=== PATIENT | female | born 1960 | race Caucasian/White ===

== ENCOUNTER 2017-02-04 19:41 | Emergency (ER) | payer MEDICAID ==
[~2017-02-04] VITALS: Ht 160 cm; Wt 75.0 kg
[2017-02-04 19:43] VITALS: BP 110/78
[2017-02-04] MEDS ORDERED: METO25TA35 PO (21:03)
[2017-02-04] MEDS ORDERED: NITR100C56 PO (21:03)
[2017-02-04] MEDS ORDERED: DOCU100C33 PO (21:03)
[2017-02-04] MEDS ORDERED: FLUT1DIS3 INH (21:03)
[2017-02-04] MEDS ORDERED: MOME13HF2 INH (21:03)
[2017-02-04] MEDS ORDERED: ESTR1TAB15 PO (21:03)
[2017-02-04] MEDS ORDERED: VENL225T PO (21:03)
[2017-02-04] MEDS ORDERED: GABA300C10 PO (21:03)
[2017-02-04] MEDS ORDERED: ALBU0.63 NEB (21:03)
[2017-02-04] MEDS ORDERED: ASPI-496 PO (21:03)
[2017-02-04] MEDS ORDERED: NITR0.4T SL (21:03)
[2017-02-04] MEDS ORDERED: LISI5TAB7 PO (21:03)
[2017-02-04] MEDS ORDERED: HYDR200T PO (21:03)
[2017-02-04] MEDS ORDERED: RANI150C PO (21:03)
[2017-02-04] MEDS ORDERED: ESOM20CA PO (21:03)
[2017-02-04] MEDS ORDERED: MORP-52 PO (21:03)
[2017-02-04] MEDS ORDERED: FLUC150T2 PO (21:03)
[2017-02-04] MEDS ORDERED: BUPR150T73 PO (21:03)
[2017-02-04] MEDS ORDERED: HYDR-3307 PO (21:03)
[2017-02-04] MEDS ORDERED: PRAV80TA2 PO (21:03)
[2017-02-04] MEDS ORDERED: OMEP-110 PO (21:03)
[2017-02-04] MEDS ORDERED: HYDROcodone/APAP 5/325 TABLET PO ONE (21:30)
[2017-02-04] MEDS ORDERED: HYDROcodone/APAP 5/325 TABLET ONE (21:31)
== END 2017-02-04 21:39 | disposition home or self-care (01) ==
LOC: ED 21:00
DX: S76.011A Strain of muscle, fascia and tendon of right hip, initial encounter (principal); N61.0 Mastitis without abscess; I10 Essential (primary) hypertension; X58.XXXA Exposure to other specified factors, initial encounter; Y93.89 Activity, other specified; Y92.89 Other specified places as the place of occurrence of the external cause; Y99.8 Other external cause status
CPT/HCPCS: 99284

== ENCOUNTER 2017-05-20 05:35 | Inpatient (IN) | payer MEDICAID ==
[2017-05-18 13:57] LABS: BASOPHILS # (AUTO) 0.05 x10^3/uL (0-0.1); BASOPHILS % (AUTO) 1 % (0-1); EOSINOPHILS # (AUTO) 0.17 x10^3/uL (0-0.4); EOSINOPHILS % (AUTO) 2 % (1-7); HCT (SEDRATE) 43.5 % (34.6-47.8); LYMPHOCYTES # (AUTO) 1.91 x10^3/uL (1-3.4); LYMPHOCYTES % (AUTO) 26 % (22-44); MD NO; MEAN CORPUSCULAR HEMOGLOBIN 30.9 pg (27.0-34.8); MEAN CORPUSCULAR HGB CONC 33.3 g/dL (32.4-35.8); MEAN CORPUSCULAR VOLUME 92.9 fL (80-100); MEAN PLATELET VOLUME 8.1 fL (7.4-10.4); MONOCYTES # (AUTO) 0.62 x10^3/uL (0.2-0.8); MONOCYTES % (AUTO) 9 % (2-9); NEUTROPHILS # (AUTO) 4.52 x10^3/uL (1.8-6.8); NEUTROPHILS % (AUTO) 62 % (42-75); PLATELET COUNT 318 x10^3/uL (130-400); RED BLOOD COUNT 4.69 x10^6/uL (3.82-5.3); RED CELL DISTRIBUTION WIDTH 14.2 % (9.6-15.2)
[2017-05-18 14:03] LABS: MICROSCOPIC NOT IND
[2017-05-18 14:10] LABS: ALBUMIN 3.5 g/dL (3.4-5.0); ANION GAP 7 mmol/L (5-15); CHLORIDE 107 mmol/L (98-107)
[2017-05-18 14:13] LABS: ALANINE AMINOTRANSFERASE 37 U/L (12-78); ALKALINE PHOSPHATASE 104 U/L (45-117); BILIRUBIN,TOTAL 0.4 mg/dL (0.2-1.0); CREATININE 0.93 mg/dL (0.55-1.02); TOTAL PROTEIN 7.8 g/dL (6.4-8.2)
[2017-05-18 14:43] LABS: INTERNATIONAL NORMALIZED RATIO 0.96 (0.93-1.1); PROTHROMBIN TIME 9.9 Seconds (9.6-11.5)
[~2017-05-20] VITALS: Ht 160 cm; Wt 86.1 kg
[~2017-05-20 05:35] MED LIST: ACET325T26 PO; ALBU0.63 NEB; ASPI-496 PO; BACL20TA PO; BUDE10.2 INH; BUPR150T73 PO; CYCL-259 PO; DESO59LO TD; DIAZ10TA4 PO; DOCU100C33 PO; ESOM20CA PO; ESTR1TAB15 PO; FAMO20TA7 PO; FENT1PAT76 TP; FLUC100T4 PO; FLUC150T2 PO; FLUT1DIS3 INH; GABA300C10 PO; HYDR-3241 PO; HYDR-3307 PO; HYDR200T72 PO; LISI5TAB7 PO; MECL25TA4 PO; METO25TA35 PO; MOME13HF2 INH; MORP-52 PO; MUPI15CR9 TD; NALO0.4D2 INJ; NAPR-685 PO; NICO-487 TD; NITR0.4T SL; NITR100C56 PO; OMEP-110 PO; PANT40TA5 PO; PRAV80TA2 PO; RANI150C PO; RIZA10TA20 PO; VENL225T PO; [UNRECOGNIZED DRUG - CODE] EACH EAR
[2017-05-20] MEDS ORDERED: LACTATED RINGERS 1,000 ML IV SCH (06:03)
[2017-05-20] MEDS ORDERED: BACITRACIN 50,000 UNIT ONE (07:13)
[2017-05-20] MEDS ORDERED: BUPIVACAINE/PF 0.5% ONE (07:13)
[2017-05-20] MEDS ORDERED: VANCOMYCIN 1,000 MG ONE (07:13)
[2017-05-20] MEDS ORDERED: THROMBIN 20,000 UNIT VIAL TP ONE (07:13)
[2017-05-20] MEDS ORDERED: EPINEPHRINE 1 MG/ML, 1ML ONE (07:13)
[2017-05-20] MEDS ORDERED: TRANEXAMIC ACID 100 MG/ML, 10ML ONE (07:13)
[2017-05-20] MEDS ORDERED: MIDAZOLAM 1 MG/ML, 2ML ONE ×2 (07:28→09:52)
[2017-05-20] MEDS ORDERED: ACETAMINOPHEN 500 MG TABLET PO ONE (07:30)
[2017-05-20] MEDS ORDERED: GABAPENTIN 300 MG CAPSULE PO ONE (07:30)
[2017-05-20] MEDS ORDERED: OxyconTIN ER 10 MG TAB.ER ONE ×2 (07:32→07:52)
[2017-05-20] MEDS ORDERED: FENTANYL PF 250 MCG/5ML ONE (07:34)
[2017-05-20] MEDS ORDERED: ONDANSETRON 2MG/ML, 2ML ONE (07:38)
[2017-05-20] MEDS ORDERED: DEXAMETHASONE 4 MG/ML, 5ML ONE (07:38)
[2017-05-20] MEDS ORDERED: ROCURONIUM 10 MG/ML,10ML ONE (07:38)
[2017-05-20] MEDS ORDERED: CEFAZOLIN 1,000 MG ONE (07:38)
[2017-05-20] MEDS ORDERED: OXYcodone IR 5MG TABLET PO ONE ×2 (08:00)
[2017-05-20] MEDS ORDERED: HYDROmorphone 2 MG/ML, 1ML ONE (08:34)
[2017-05-20] MEDS ORDERED: LABETALOL 5MG/ML, 20ML IV PRN (09:00)
[2017-05-20] MEDS ORDERED: ALBUTEROL SULFATE 2.5 MG/3 ML NPPB PRN ×2 (09:00→12:30)
[2017-05-20] MEDS ORDERED: LORazepam 2 MG/ML, 1ML IVPush PRN (09:00)
[2017-05-20] MEDS ORDERED: MEPERIDINE/PF 25MG/0.5ML IVPush PRN (09:00)
[2017-05-20] MEDS ORDERED: ONDANSETRON 2MG/ML, 2ML IVPush PRN ×2 (09:00→12:30)
[2017-05-20] MEDS ORDERED: HYDROmorphone 2 MG/ML, 1ML IV PRN (09:00)
[2017-05-20] MEDS ORDERED: OXYcodone 5 MG/5 ML ORAL.SOL UDC PO PRN (09:00)
[2017-05-20] MEDS ORDERED: FENTANYL PF 100 MCG/2ML ONE ×3 (09:48→10:06)
[2017-05-20] MEDS ORDERED: OXYcodone 5 MG/5 ML ORAL.SOL UDC ONE (10:07)
[2017-05-20] MEDS: FENTANYL PF 100 MCG/2ML IV PRN ×2 (10:15→10:34)
[2017-05-20] MEDS ORDERED: MEPERIDINE/PF 50 MG/ML ONE (10:45)
[2017-05-20] MEDS ORDERED: BISACODYL 10 MG SUPP PR PRN (12:30)
[2017-05-20] MEDS: LABETALOL 5MG/ML, 20ML IVPush SCH ×2 (12:30→20:30)
[2017-05-20] MEDS ORDERED: DIPHENHYDRAMINE 25 MG CAPSULE PO PRN (12:30)
[2017-05-20] MEDS ORDERED: LORazepam 1MG TABLET PO PRN (12:30)
[2017-05-20] MEDS ORDERED: SENNA/DOCUSATE TABLET PO PRN (12:30)
[2017-05-20] MEDS ORDERED: ONDANSETRON ODT 4 MG PO PRN (12:30)
[2017-05-20] MEDS ORDERED: MAGNESIUM HYDROXIDE 8%, 30ML UDC PO PRN (12:30)
[2017-05-20] MEDS ORDERED: PROMETHAZINE 25 MG SUPP PR PRN (12:30)
[2017-05-20] MEDS ORDERED: ALUMINUM/MAG/SIMETHICONE 30 ML UDC PO PRN (12:30)
[2017-05-20] MEDS ORDERED: SCOPOLAMINE PATCH, 1.5MG PATCH.TD72 TD SCH (12:30)
[2017-05-20] MEDS ORDERED: PROMETHAZINE 25 MG/ML, 1ML IM PRN (12:30)
[2017-05-20] MEDS ORDERED: ZOLPIDEM 5MG TABLET PO PRN (12:30)
[2017-05-20] MEDS ORDERED: morphine SULFATE 10 MG/ML, 1ML IV PRN (12:30)
[2017-05-20] MEDS ORDERED: ACETAMINOPHEN 500 MG TABLET PO PRN (12:30)
[2017-05-20] MEDS ORDERED: LORazepam 2 MG/ML, 1ML IV PRN (12:30)
[2017-05-20] MEDS: D5%-0.45NACL+KCL 20MEQ 1,000 ML IV SCH ×2 (12:53→22:30)
[2017-05-20] MEDS: NICOTINE 21 MG/24 HR PATCH.TD24 TD SCH (12:57)
[2017-05-20] MEDS ORDERED: TRANEXAMIC ACID 1,500 MG in SODIUM CHLORIDE 0.9% 100 ML IVPB ONE (13:00)
[2017-05-20] MEDS ORDERED: MECLIZINE CHEWABLE 25 MG TAB PO PRN (13:00)
[2017-05-20] MEDS ORDERED: NALOXONE 0.4 MG/ML, 1ML IVPush PRN (13:00)
[2017-05-20] MEDS ORDERED: NITROGLYCERIN 0.4 MG BOTTLE (25 TABS) SL PRN (13:00)
[2017-05-20 13:16] VITALS: BP 103/62
[2017-05-20] MEDS ORDERED: NAPROXEN MC SCH (13:30)
[2017-05-20] MEDS: OXYcodone IR 5MG TABLET PO PRN ×4 (14:20→23:44)
[2017-05-20] MEDS ORDERED: CEFAZOLIN PMX 2GM/100ML 100 ML IVPB SCH (15:30)
[2017-05-20] MEDS ORDERED: NAPROXEN 500 MG TABLET PO SCH (16:00)
[2017-05-20] MEDS ORDERED: OxyconTIN ER 10 MG TAB.ER PO ONE (16:00)
[2017-05-20] MEDS: METOPROLOL TARTRATE 25 MG TABLET PO SCH (17:49)
[2017-05-20] MEDS: DIAZEPAM 5 MG TABLET PO PRN ×2 (18:06→22:14)
[2017-05-20 18:20] VITALS: BP 138/83
[2017-05-20] MEDS: KETOROLAC 30 MG/1 ML IV PRN (20:10)
[2017-05-20] MEDS: ESTRADIOL 2 MG TABLET PO SCH (20:25)
[2017-05-20] MEDS: DOCUSATE 100 MG CAPSULE PO SCH (20:25)
[2017-05-20] MEDS: SODIUM CHLORIDE FLUSH 10ML SYR IVF SCH (20:25)
[2017-05-20] MEDS: FAMOTIDINE 20 MG TABLET PO SCH (20:25)
[2017-05-20] MEDS: NAPROXEN 500 MG TABLET PO SCH (20:26)
[2017-05-20] MEDS ORDERED: PRAVASTATIN 40 MG TABLET PO SCH (21:00)
[2017-05-20] MEDS ORDERED: CEFAZOLIN PMX 2GM/50ML 50 ML IVPB SCH (23:30)
[2017-05-21 00:31] VITALS: BP 137/73
[2017-05-21] MEDS: DIAZEPAM 5 MG TABLET PO PRN ×3 (02:38→10:59)
[2017-05-21] MEDS: KETOROLAC 30 MG/1 ML IV PRN ×2 (02:38→08:43)
[2017-05-21] MEDS: OXYcodone IR 5MG TABLET PO PRN ×5 (02:38→12:21)
[2017-05-21 04:29] VITALS: BP 121/73
[2017-05-21] MEDS: LABETALOL 5MG/ML, 20ML IVPush SCH ×2 (04:30→09:49)
[2017-05-21] MEDS: METOPROLOL TARTRATE 25 MG TABLET PO SCH (05:52)
[2017-05-21] MEDS ORDERED: RIVAROXABAN 10 MG TABLET PO SCH (06:00)
[2017-05-21] MEDS ORDERED: DEXAMETHASONE 6 MG in SODIUM CHLORIDE 0.9% 50 ML IV PRN (06:00)
[2017-05-21 06:26] VITALS: BP 111/71
[2017-05-21] MEDS: D5%-0.45NACL+KCL 20MEQ 1,000 ML IV SCH (06:56)
[2017-05-21] MEDS: NAPROXEN 500 MG TABLET PO SCH (07:10)
[2017-05-21] MEDS ORDERED: PANTOPROZOLE 40MG TABLET PO SCH (07:30)
[2017-05-21] MEDS: ESTRADIOL 2 MG TABLET PO SCH (08:27)
[2017-05-21] MEDS: FAMOTIDINE 20 MG TABLET PO SCH (08:28)
[2017-05-21] MEDS: DOCUSATE 100 MG CAPSULE PO SCH (08:28)
[2017-05-21] MEDS: SODIUM CHLORIDE FLUSH 10ML SYR IVF SCH (08:28)
[2017-05-21] MEDS ORDERED: BUPROPION SR 150 MG TABLET PO SCH (09:00)
[2017-05-21] MEDS ORDERED: FLUCONAZOLE 100 MG TABLET PO SCH (09:00)
[2017-05-21] MEDS ORDERED: FLUTICASONE/VILANTEROL 200-25MCG/INH INH SCH (09:00)
[2017-05-21] MEDS ORDERED: MULTIVITAMINS/MINERALS TABLET PO SCH (09:00)
[2017-05-21] MEDS ORDERED: GABAPENTIN 300 MG CAPSULE PO SCH (09:00)
[2017-05-21] MEDS ORDERED: LISINOPRIL 5 MG TABLET PO SCH (09:00)
[2017-05-21] MEDS ORDERED: VENLAFAXINE 75 MG CAP ER PO SCH (09:00)
[2017-05-21] MEDS ORDERED: DEXAMETHASONE 4 MG/ML, 1ML IVPush SCH (11:00)
[2017-05-21] MEDS ORDERED: OXYC5TAB3 PO (11:41)
[2017-05-21] MEDS ORDERED: RIVA10TA PO (11:42)
[2017-05-21] MEDS ORDERED: DIAZ5TAB4 PO (11:42)
[2017-05-21] MEDS ORDERED: CEPH-368 PO (11:43)
[2017-05-21] MEDS: NICOTINE 21 MG/24 HR PATCH.TD24 TD SCH (12:24)
[2017-05-21 13:53] VITALS: BP 96/62
[2017-05-22] MEDS ORDERED: FENTANYL REMOVE PATCH NOTE XX SCH (12:30)
[2017-05-22] MEDS ORDERED: FENTANYL 25 MCG PATCH TD SCH (12:30)
== END 2017-05-21 14:00 | disposition home health service (06) | DRG 470 ==
LOC: ORIP 05:35 → 4NOR 11:28
PROVIDERS: ADMIT Orthopaedic Surgery Orthopaedic Surgery of the Spine; ATTEND Orthopaedic Surgery Orthopaedic Surgery of the Spine
PROC: 0SR904A Replacement of Right Hip Joint with Ceramic on Polyethylene Synthetic Substitute, Uncemented, Open Approach (ICD-10-PCS; principal; 2017-05-20 07:30)
DX: M16.11 Unilateral primary osteoarthritis, right hip (principal)
CPT/HCPCS: 36415; 71046; 80053; 81003; 85014; 85018; 85025; 85610; 85651; 85730; 86850; 86900; 93005; J0171; J0690; J1100; J1170; J1885; J2175; J2250; J2405; J3010; J3370; J3490; J3480

== ENCOUNTER → 2017-11-10 | Outpatient (CLI) | payer MEDICAID ==
[~2017-11-10] MED LIST changes: +CEPH-368 PO; +DIAZ5TAB4 PO; +OXYC5TAB3 PO; +RIVA10TA PO
[2017-11-10 10:51] LABS: BASOPHILS # (AUTO) 0.06 x10^3/uL (0-0.1); BASOPHILS % (AUTO) 1 % (0-1); EOSINOPHILS # (AUTO) 0.25 x10^3/uL (0-0.4); EOSINOPHILS % (AUTO) 3 % (1-7); LYMPHOCYTES # (AUTO) 2.67 x10^3/uL (1-3.4); LYMPHOCYTES % (AUTO) 31 % (22-44); MD NO; MEAN CORPUSCULAR HEMOGLOBIN 31.2 pg (27.0-34.8); MEAN CORPUSCULAR HGB CONC 33.7 g/dL (32.4-35.8); MEAN CORPUSCULAR VOLUME 92.8 fL (80-100); MEAN PLATELET VOLUME 8.6 fL (7.4-10.4); MONOCYTES # (AUTO) 0.74 x10^3/uL (0.2-0.8); MONOCYTES % (AUTO) 9 % (2-9); NEUTROPHILS # (AUTO) 4.91 x10^3/uL (1.8-6.8); NEUTROPHILS % (AUTO) 57 % (42-75); PLATELET COUNT 289 x10^3/uL (130-400); RED BLOOD COUNT 4.95 x10^6/uL (3.82-5.3); RED CELL DISTRIBUTION WIDTH 15.4 % (9.6-15.2)
[2017-11-10 10:52] LABS: HCT (SEDRATE) 45.9 % (34.6-47.8)
[2017-11-10 11:03] LABS: ALANINE AMINOTRANSFERASE 26 U/L (12-78); ANION GAP 3 mmol/L (5-15); CALCIUM 9.4 mg/dL (8.5-10.1); CHLORIDE 106 mmol/L (98-107); CREATININE 0.97 mg/dL (0.55-1.02)
[2017-11-10 11:05] LABS: ALKALINE PHOSPHATASE 116 U/L (45-117); BILIRUBIN,TOTAL 0.5 mg/dL (0.2-1.0); TOTAL PROTEIN 8.2 g/dL (6.4-8.2)
[2017-11-10 11:17] LABS: CULTURE INDICATED? NO; MICROSCOPIC NOT IND
[2017-11-10 11:23] LABS: INTERNATIONAL NORMALIZED RATIO 0.91 (0.93-1.1); PROTHROMBIN TIME 9.4 Seconds (9.6-11.5)
== END | disposition home or self-care (01) ==
LOC: STAR 09:38
PROVIDERS: ATTEND Orthopaedic Surgery Orthopaedic Surgery of the Spine
DX: Z01.818 Encounter for other preprocedural examination (principal); M50.20 Other cervical disc displacement, unspecified cervical region; M48.02 Spinal stenosis, cervical region; M54.12 Radiculopathy, cervical region
CPT/HCPCS: 36415; 71046; 80053; 81003; 85025; 85610; 85651; 85730; 93005

== ENCOUNTER 2017-11-17 05:56 | Inpatient (IN) | payer MEDICAID ==
[~2017-11-17] VITALS: Ht 160 cm; Wt 106.0 kg
[2017-11-17] MEDS ORDERED: BUPIVACAINE/PF-EPI 0.5% 1:200K ONE (06:33)
[2017-11-17] MEDS ORDERED: TRANEXAMIC ACID 100 MG/ML, 10ML ONE (06:33)
[2017-11-17] MEDS ORDERED: THROMBIN 5,000 UNIT VIAL TP ONE (06:34)
[2017-11-17] MEDS ORDERED: BACITRACIN 50,000 UNIT ONE (06:34)
[2017-11-17] MEDS ORDERED: LACTATED RINGERS 1,000 ML IV SCH (06:41)
[2017-11-17] MEDS ORDERED: THROMBIN 20,000 UNIT VIAL TP ONE (06:46)
[2017-11-17] MEDS ORDERED: ALBU8.5H8 INH (07:00)
[2017-11-17] MEDS ORDERED: MIDAZOLAM 1 MG/ML, 2ML ONE (07:18)
[2017-11-17] MEDS ORDERED: FENTANYL PF 100 MCG/2ML ONE (07:18)
[2017-11-17] MEDS ORDERED: PROPOFOL 10 MG/ML, 20ML ONE (07:19)
[2017-11-17] MEDS ORDERED: LIDOCAINE-MPF 2% ,5ML ONE (07:21)
[2017-11-17] MEDS ORDERED: EPHEDRINE 50 MG/ML, 1ML ONE (07:22)
[2017-11-17] MEDS ORDERED: PHENYLEPHRINE 10 MG/ML ONE (07:22)
[2017-11-17] MEDS ORDERED: CEFAZOLIN 1,000 MG ONE ×2 (07:22)
[2017-11-17] MEDS ORDERED: DEXAMETHASONE 4 MG/ML, 1ML ONE ×2 (07:22)
[2017-11-17] MEDS ORDERED: SODIUM CHLORIDE 0.9% PF 10ML ONE (07:23)
[2017-11-17] MEDS ORDERED: SUCCINYLCHOLINE 20 MG/ML, 10ML ONE (07:26)
[2017-11-17] MEDS ORDERED: ROCURONIUM 10MG/ML,5ML ONE (07:26)
[2017-11-17] MEDS ORDERED: FENTANYL PF 100 MCG/2ML IV PRN (07:30)
[2017-11-17] MEDS ORDERED: ONDANSETRON ODT 8 MG PO ONE (07:30)
[2017-11-17] MEDS ORDERED: LORazepam 2 MG/ML, 1ML IVPush PRN (07:30)
[2017-11-17] MEDS ORDERED: MORPHINE SULFATE 4 MG/ML, 1ML IVPush PRN (07:30)
[2017-11-17] MEDS ORDERED: hydrALAzine 20 MG/ML, 1ML IV PRN (07:30)
[2017-11-17] MEDS ORDERED: METOPROLOL 1 MG/ML, 5ML IV PRN (07:30)
[2017-11-17] MEDS ORDERED: PROCHLORPERAZINE 5 MG/ML, 2ML IV PRN (07:30)
[2017-11-17] MEDS ORDERED: MEPERIDINE/PF 25MG/0.5ML IVPush PRN (07:30)
[2017-11-17] MEDS ORDERED: MIDAZOLAM 1 MG/ML, 2ML IV PRN (07:30)
[2017-11-17] MEDS ORDERED: OXYcodone 5 MG/5 ML ORAL.SOL UDC PO PRN (07:30)
[2017-11-17] MEDS ORDERED: ALBUTEROL SULFATE 2.5 MG/3 ML NPPB PRN ×2 (07:30→13:00)
[2017-11-17] MEDS ORDERED: DIPHENHYDRAMINE 50 MG/ML, 1ML IVPush PRN ×2 (07:30→12:30)
[2017-11-17] MEDS ORDERED: ACETAMINOPHEN 500 MG TABLET PO ONE (07:30)
[2017-11-17] MEDS ORDERED: LABETALOL 5MG/ML, 20ML IV PRN ×2 (07:30→12:30)
[2017-11-17] MEDS ORDERED: DIAZEPAM 5 MG/ML, 2ML IVPush PRN (07:30)
[2017-11-17] MEDS ORDERED: EPHEDRINE 50 MG/ML, 1ML IVPush PRN (07:30)
[2017-11-17] MEDS ORDERED: GABAPENTIN 300 MG CAPSULE PO ONE (07:30)
[2017-11-17] MEDS ORDERED: PROPOFOL 50 ML ONE (07:35)
[2017-11-17] MEDS ORDERED: VANCOMYCIN 500 MG ONE (09:04)
[2017-11-17] MEDS ORDERED: OXYcodone 5 MG/5 ML ORAL.SOL UDC ONE (09:59)
[2017-11-17] MEDS ORDERED: HYDROmorphone 2 MG/ML, 1ML ONE (09:59)
[2017-11-17] MEDS: HYDROmorphone 1 MG/ML, 1ML IV PRN ×2 (10:00→10:15)
[2017-11-17] MEDS ORDERED: TRANEXAMIC ACID 1,000 MG in SODIUM CHLORIDE 0.9% 100 ML IV ONE (10:30)
[2017-11-17] MEDS ORDERED: TRANEXAMIC ACID 100 MG/ML, 10ML IV ONE (10:30)
[2017-11-17 11:41] VITALS: BP 106/64
[2017-11-17] MEDS ORDERED: MAGNESIUM HYDROXIDE 8%, 30ML UDC PO PRN (12:30)
[2017-11-17] MEDS ORDERED: morphine SULFATE 10 MG/ML, 1ML IV PRN (12:30)
[2017-11-17] MEDS ORDERED: BISACODYL 10 MG SUPP PR PRN (12:30)
[2017-11-17] MEDS ORDERED: OXYcodone IR 5MG TABLET PO PRN (12:30)
[2017-11-17] MEDS ORDERED: DIAZEPAM 5 MG/ML, 2ML IV PRN (12:30)
[2017-11-17] MEDS ORDERED: ONDANSETRON 2MG/ML, 2ML IV PRN (12:30)
[2017-11-17] MEDS ORDERED: PROMETHAZINE 25 MG/ML, 1ML IM PRN (12:30)
[2017-11-17] MEDS ORDERED: DIPHENHYDRAMINE 50 MG/ML, 1ML IM PRN (12:30)
[2017-11-17] MEDS ORDERED: DIPHENHYDRAMINE 50 MG CAPSULE PO PRN (12:30)
[2017-11-17] MEDS ORDERED: NITROGLYCERIN SINGLE TAB 0.4 MG SL PRN (13:00)
[2017-11-17] MEDS ORDERED: SODIUM CHLORIDE 0.9% 1,000ML IV PRN (13:00)
[2017-11-17] MEDS ORDERED: HOME MED SHEET MC SCH (13:00)
[2017-11-17] MEDS ORDERED: KETOROLAC 30 MG/1 ML IV ONE (13:00)
[2017-11-17] MEDS: ACETAMINOPHEN 500 MG TABLET PO SCH ×2 (13:20→20:22)
[2017-11-17 13:29] VITALS: BP 94/51
[2017-11-17] MEDS ORDERED: DEXAMETHASONE 4 MG/ML, 1ML IV PRN (13:30)
[2017-11-17] MEDS: CEFAZOLIN PMX 1GM/50ML 50 ML IVPB SCH ×2 (15:38→23:47)
[2017-11-17] MEDS ORDERED: MECLIZINE CHEWABLE 25 MG TAB PO PRN (16:00)
[2017-11-17] MEDS: DIAZEPAM 5 MG TABLET PO PRN (18:41)
[2017-11-17 19:04] VITALS: BP 106/61
[2017-11-17] MEDS ORDERED: NICOTINE 21 MG/24 HR PATCH.TD24 TD SCH (20:00)
[2017-11-17] MEDS: OXYcodone IR 5MG TABLET PO PRN ×2 (20:24→23:45)
[2017-11-17] MEDS: D5%-0.9% NACL+KCL 20MEQ 1,000 ML IV SCH (20:25)
[2017-11-17] MEDS ORDERED: GABAPENTIN 300 MG CAPSULE PO SCH (21:00)
[2017-11-17] MEDS ORDERED: METOPROLOL TARTRATE 25 MG TABLET PO SCH (21:00)
[2017-11-17] MEDS ORDERED: PRAVASTATIN 40 MG TABLET PO SCH (21:00)
[2017-11-17] MEDS ORDERED: VENLAFAXINE 75 MG CAP ER PO SCH (21:00)
[2017-11-17] MEDS ORDERED: NAPROXEN 500 MG TABLET PO PRN (21:00)
[2017-11-17] MEDS ORDERED: ZOLPIDEM 5MG TABLET PO PRN (21:00)
[2017-11-17] MEDS ORDERED: BUPROPION SR 150 MG TABLET PO SCH (21:00)
[2017-11-17] MEDS ORDERED: LISINOPRIL 5 MG TABLET PO SCH (21:00)
[2017-11-17] MEDS ORDERED: KETOROLAC 30 MG/1 ML IV PRN (21:00)
[2017-11-17] MEDS: ALBUTEROL SULFATE 2.5 MG/3 ML NPPB SCH (21:55)
[2017-11-17] MEDS: FAMOTIDINE 20 MG TABLET PO SCH (22:12)
[2017-11-18 00:21] VITALS: BP 106/61
[2017-11-18] MEDS: DIAZEPAM 5 MG TABLET PO PRN ×3 (00:50→11:15)
[2017-11-18] MEDS: OXYcodone IR 5MG TABLET PO PRN ×5 (02:53→15:56)
[2017-11-18] MEDS: ACETAMINOPHEN 500 MG TABLET PO SCH ×3 (02:53→14:13)
[2017-11-18 05:17] LABS: BASOPHILS # (AUTO) 0.02 x10^3/uL (0-0.1); BASOPHILS % (AUTO) 0 % (0-1); EOSINOPHILS % (AUTO) 0 % (1-7); LYMPHOCYTES # (AUTO) 1.66 x10^3/uL (1-3.4); LYMPHOCYTES % (AUTO) 10 % (22-44); MD NO; MEAN CORPUSCULAR HEMOGLOBIN 31.5 pg (27.0-34.8); MEAN CORPUSCULAR HGB CONC 33.7 g/dL (32.4-35.8); MEAN CORPUSCULAR VOLUME 93.5 fL (80-100); MEAN PLATELET VOLUME 8.3 fL (7.4-10.4); MONOCYTES # (AUTO) 1.23 x10^3/uL (0.2-0.8); MONOCYTES % (AUTO) 7 % (2-9); NEUTROPHILS # (AUTO) 14.69 x10^3/uL (1.8-6.8); NEUTROPHILS % (AUTO) 84 % (42-75); PLATELET COUNT 263 x10^3/uL (130-400); RED CELL DISTRIBUTION WIDTH 15.4 % (9.6-15.2)
[2017-11-18] MEDS: D5%-0.9% NACL+KCL 20MEQ 1,000 ML IV SCH ×2 (05:30→15:30)
[2017-11-18 07:59] VITALS: BP 109/67
[2017-11-18] MEDS: FAMOTIDINE 20 MG TABLET PO SCH (08:04)
[2017-11-18] MEDS ORDERED: FLUTICASONE/VILANTEROL 200-25MCG/INH INH SCH (09:00)
[2017-11-18] MEDS ORDERED: SENNA/DOCUSATE TABLET PO SCH (09:00)
[2017-11-18] MEDS ORDERED: DIAZEPAM 5 MG TABLET PO PRN (11:00)
[2017-11-18] MEDS: ALBUTEROL SULFATE 2.5 MG/3 ML NPPB SCH (11:30)
[2017-11-18 13:30] VITALS: BP 105/74
[2017-11-18] MEDS ORDERED: DIAZ5TAB4 PO (16:14)
[2017-11-18] MEDS ORDERED: OXYC5CAP2 PO (16:14)
[2017-11-18] MEDS ORDERED: CEPH-368 PO (16:15)
[2017-11-18] MEDS ORDERED: FLUC150T2 PO (16:15)
== END 2017-11-18 16:30 | disposition home or self-care (01) | DRG 472 ==
LOC: OR 05:56 → 4NOR 11:27 → OR 11:39 → DCLOUNGE 11-18 16:15
PROVIDERS: ADMIT Orthopaedic Surgery Orthopaedic Surgery of the Spine; ATTEND Orthopaedic Surgery Orthopaedic Surgery of the Spine
PROC: 0RB30ZZ Excision of Cervical Vertebral Disc, Open Approach (ICD-10-PCS; 2017-11-17)
PROC: 4A11X4G Monitoring of Peripheral Nervous Electrical Activity, Intraoperative, External Approach (ICD-10-PCS; 2017-11-17)
PROC: 0RG10A0 Fusion of Cervical Vertebral Joint with Interbody Fusion Device, Anterior Approach, Anterior Column, Open Approach (ICD-10-PCS; principal; 2017-11-17 07:30)
DX: M50.123 Cervical disc disorder at C6-C7 level with radiculopathy (principal); M50.023 Cervical disc disorder at C6-C7 level with myelopathy; M48.02 Spinal stenosis, cervical region; F17.200 Nicotine dependence, unspecified, uncomplicated; M43.12 Spondylolisthesis, cervical region; Z91.040 Latex allergy status; Z88.5 Allergy status to narcotic agent; Z91.048 Other nonmedicinal substance allergy status
CPT/HCPCS: 36415; 72040; J7613; 85025; 94640; C1713; G0378; J0690; J1100; J1170; J1885; J2250; J2704; J3010; J3370; J3490; Q0162; C1762; J0330; J2370; J3480; J7030; J7120

== ENCOUNTER 2018-08-03 16:34 | Emergency (ER) | payer MEDICAID ==
[~2018-08-03] VITALS: Ht 160 cm; Wt 93.5 kg
[~2018-08-03 16:34] MED LIST changes: +ALBU8.5H8 INH; -NITR0.4T SL; +NITR0.4T41 SL; +OXYC5CAP2 PO; -RIVA10TA PO; +RIVA10TA2 PO
[2018-08-03 16:38] VITALS: BP 109/72
[2018-08-03] MEDS ORDERED: HYDROcodone/APAP 5/325 TABLET PO STA (17:27)
[2018-08-03] MEDS ORDERED: HYDROcodone/APAP 5/325 TABLET ONE (17:35)
[2018-08-03] MEDS ORDERED: IBUPROFEN 200 MG TABLET ONE (17:36)
[2018-08-03] MEDS ORDERED: IBUPROFEN 600 MG TABLET PO ONE (18:00)
== END 2018-08-03 18:15 | disposition home or self-care (01) ==
LOC: ED 18:09
DX: S93.621A Sprain of tarsometatarsal ligament of right foot, initial encounter (principal); S93.491A Sprain of other ligament of right ankle, initial encounter; I10 Essential (primary) hypertension; F17.200 Nicotine dependence, unspecified, uncomplicated; X50.1XXA Overexertion from prolonged static or awkward postures, initial encounter; Y93.89 Activity, other specified; Y92.009 Unspecified place in unspecified non-institutional (private) residence as the place of occurrence of the external cause; Y99.8 Other external cause status
CPT/HCPCS: 99283